=== PATIENT | female | born 1995 | race Caucasian/White ===

== ENCOUNTER → 2022-08-29 | Outpatient (CLI) | payer BC ==
--- NOTE | 2022-08-29 21:28 | MR ---
EXAMINATION TYPE: MR iac wo/w con DATE OF EXAM: 08/29/2022 COMPARISON: NONE HISTORY: Vertigo. TECHNIQUE: Multiplanar, multisequence images of the brain and brainstem focusing on the internal auditory canals is performed without and with IV contrast, utilizing 5.5 mL intravenous Gadavist . FINDINGS: Diffusion weighted images demonstrate no evidence of a recent infarct or other diffusion ab normality. There is no extra-axial fluid collection or significant white matter signal abnormality. The ventricular system and cisternal spaces are normal in size and appearance. The brain volume is age appropriate. Midline structures demonstrate normal morphology. The craniocervical junction appears within normal limits. Normal vascular flow voids are seen. The globes are intact and the visualized paranasal sinus es are clear. No suspicious fluid signal in the bilateral mastoid air cells is present. Vestibulocochlear complexes are symmetric and felt within normal limits. There is no suspicious enhancing cerebellopontine angle mass identified bilaterally. IMPRESSION: No significant findings identified to account for patient's symptoms of vertigo.
== END | disposition home or self-care (01) ==
LOC: RADMRIMAIN 18:12
PROVIDERS: ATTEND Otolaryngology
DX: R42 Dizziness and giddiness (principal)
CPT/HCPCS: 70553; A9585